=== PATIENT | female | born 1965 | race African-American/Black ===

== ENCOUNTER 2020-12-20 19:58 | Emergency (ER) | payer OTHER ==
[~2020-12-20] VITALS: Ht 154.9 cm; Wt 95.3 kg
[~2020-12-20 19:58] MED LIST: ALBUTEROL INHAL17 GM IH; ASPIRIN EC81 M1 PO; AUGMENTIN 875875 MG PO; CLARITIN10 M2 PO; COUMADIN 5 MG TA5 M1 PO; DARVOCET-N 1001 EACH PO; IBUPROFEN 600600 M1 PO; LIPITOR10 MG PO; LISINOPRIL10 MG PO; LOVASTAT20; LOVASTATIN; NORVASC 2.5 MG2.5 M1 PO; PRENATAL; PRILOSEC40 MG PO; ZANTAC150 M2 PO; ZOLOFT25 MG PO
[2020-12-20 20:45] LABS: ABSOLUTE BASOPHILS 0.1 thou/uL (0.0-0.2); ABSOLUTE EOSINOPHILS 0.1 thou/uL (0.0-0.7); ABSOLUTE LYMPHOCYTES 2.3 thou/uL (0.8-5.3); ABSOLUTE MONOCYTES 0.4 thou/uL (0.0-1.2); ABSOLUTE NEUTROPHILS 2.7 thou/uL (1.6-8.1); BASOPHILS 1.1 %; EOSINOPHILS 2.4 %; HEMATOCRIT 37.4 % (37.0-47.0); HEMOGLOBIN 12.6 gm/dL (12.0-15.0); LYMPHOCYTES 40.4 %; MCH 27.7 pg (26.0-34.0); MCHC 33.8 g/dL (28.0-37.0); MCV 82.1 fL (80.0-100.0); MONOCYTES 7.7 %; MPV 8.8 fl. (7.2-11.1); NUCLEATED RBCS 0 /100WBC; PLATELET COUNT* 257 thou/uL (150-400); POLYS 48.4 %; RBC 4.56 mil/uL (4.20-5.00); RDW-CV 14.1 % (10.5-14.5); WBC 5.6 thou/uL (4.0-11.0)
[2020-12-20] MEDS ORDERED: LIPITOR40 MG PO (20:56)
[2020-12-20] MEDS ORDERED: CELEXA 10 MG TA10 M1 PO (20:56)
[2020-12-20] MEDS ORDERED: HYDROCHLOROTHIA25 M1 PO (20:57)
[2020-12-20] MEDS ORDERED: NORVASC10 MG PO (20:57)
[2020-12-20] MEDS ORDERED: ZYRTEC10 M5 PO (20:57)
[2020-12-20] MEDS ORDERED: FLONASE 0.05%50 MCG NARES (20:57)
[2020-12-20 20:58] LABS: CALCIUM 9.4 mg/dL (8.5-10.1); POTASSIUM 3.9 mmol/L (3.5-5.1)
[2020-12-20] MEDS ORDERED: PROTONIX40 M2 PO (20:58)
[2020-12-20 21:02] LABS: ALBUMIN 3.7 g/dL (3.4-5.0); TOTAL BILIRUBIN 0.2 mg/dL (<0.1-1.0); TOTAL PROTEIN 8.1 g/dL (6.4-8.2)
[2020-12-21 04:14] VITALS: BP 139/76
--- NOTE | 2020-12-21 10:54 | EKG ---
[place] [address] ELECTROCARDIOGRAM REPORT Name: JUANA GONZALEZ Room: [facility]#: [id number] Admission: 12/20/20 Attend Phys: Discharge: 12/21/20 Date of : 63 Date of Service: 12/20/202040 Report #: [id number] THIS REPORT FOR: //name// [facility] ED Test Date: 2020-12-20 Test Time: 20:41:42 Pat Name: JUANA GONZALEZ Department: Room: Gender: F Processing Specialist: YANNI : 1965 Requested By: Jaclyn Stewart Order Number: [id number] MD: Juvenal Underwood Measurements Intervals [place] Rate: 64 P: 51 MS: 152 QRS: 23 QRSD: 81 T: 35 QT: 414 QTc: 427 Interpretive Statements Sinus rhythm with prominent sinus arrhythmia Borderline repolarization abnormality Baseline wander in lead(s) II,aVR,aVF No previous ECG available for comparison Electronically Signed On 12-21-2020 10:54:36 CDT by Juvenal Underwood [email or web address] <ELECTRONICALLY SIGNED> By: Juvenal Underwood MD, [facility] 12/21/20 1054 40 40 Juvenal Underwood MD, [facility] /EPI
== END 2020-12-21 04:15 | disposition home or self-care (01) ==
LOC: M.ERS 19:58
PROVIDERS: Personal Emergency Response Attendant
DX: I10 Essential (primary) hypertension (principal); R07.89 Other chest pain; G44.89 Other headache syndrome; E78.00 Pure hypercholesterolemia, unspecified